=== PATIENT | male | born 1940 | race Caucasian/White ===

== ENCOUNTER 2016-07-18 19:28 | Emergency (ER) | payer MEDICARE, OTHER ==
[~2016-07-18] VITALS: Ht 177.8 cm; Wt 106.8 kg
[~2016-07-18 19:28] MED LIST: ALTACE 2.5MG T2.5 MG PO; ASPIRIN 32325 MG/TAB PO; AVELOX 400MG T400 MG PO; NO HOME MEDICATIONS; NORCO 325 MG-7.1 TAB PO; ZITHROMAX 250M250 MG PO
[2016-07-18 19:39] VITALS: TEMP 98.5
[2016-07-18] MEDS ORDERED: NORCO 325 MG-51 TAB PO (20:08)
[2016-07-18 20:13] VITALS: BP 155/83; PULSE 69
== END 2016-07-18 20:15 | disposition home or self-care (01) ==
LOC: COL.ER 19:28
DX: M25.511 Pain in right shoulder (principal); I10 Essential (primary) hypertension; Z87.891 Personal history of nicotine dependence; W22.8XXA Striking against or struck by other objects, initial encounter; Y92.009 Unspecified place in unspecified non-institutional (private) residence as the place of occurrence of the external cause

== ENCOUNTER 2016-10-11 01:07 | Emergency (ER) | payer MEDICARE, OTHER ==
[~2016-10-11] VITALS: Ht 180.3 cm; Wt 107.7 kg
[~2016-10-11 01:07] MED LIST changes: +NORCO 325 MG-51 TAB PO
[2016-10-11 01:09] VITALS: BP 133/61; TEMP 97.6
[2016-10-11] MEDS ORDERED: ULTRAM 50MG TAB50 MG PO (02:07)
[2016-10-11 02:21] VITALS: PULSE 63
== END 2016-10-11 02:24 | disposition home or self-care (01) ==
LOC: COL.ER 01:07
DX: M19.072 Primary osteoarthritis, left ankle and foot (principal); L84 Corns and callosities; I10 Essential (primary) hypertension

== ENCOUNTER 2017-04-19 08:12 | Emergency (ER) | payer MEDICARE, OTHER ==
[~2017-04-19] VITALS: Ht 180.3 cm; Wt 102.3 kg
[~2017-04-19 08:12] MED LIST changes: +ULTRAM 50MG TAB50 MG PO
[2017-04-19 08:25] VITALS: BP 148/73; PULSE 85; TEMP 97.8
[2017-04-19] MEDS ORDERED: ZITHROMAX Z PA250 MG PO (09:33)
== END 2017-04-19 09:42 | disposition home or self-care (01) ==
LOC: COL.ER 08:12
DX: H66.91 Otitis media, unspecified, right ear (principal); I10 Essential (primary) hypertension

== ENCOUNTER 2017-05-16 23:11 | Emergency (ER) | payer MEDICARE, OTHER ==
[2017-05-16 23:11] VITALS: TEMP 97.5
[~2017-05-16 23:11] MED LIST changes: +ZITHROMAX Z PA250 MG PO
[2017-05-16 23:38] LABS: BASO # 0.1 (0.0-0.2); BASO % 0.8 % (0.0-2.0); EOS # 0.1 (0.0-0.7); EOS % 1.7 % (0-4.0); GRAN # 4.3 (1.4-6.5); GRAN % 65.4 % (42.2-75.2); HEMATOCRIT 42.5 % (42.0-52.0); HEMOGLOBIN 13.4 g/dl (13.5-18.0); LYMPH # 1.6 (1.2-3.4); LYMPH % 24.4 % (20.0-51.0); MEAN CELL VOLUME 86 fl (80.0-100.0); MEAN CORPUSCULAR HEMOGLOBIN 27 pg (27.0-31.0); MEAN CORPUSCULAR HGB CONC 32 g/dl (33.0-37.0); MEAN PLATELET VOLUME 10.9 fl (7.4-10.4); MONO # 0.5 (0.1-0.6); MONO % 7.4 % (1.7-9.3); PLATELET COUNT 213 K/mm3 (130-400); RED BLOOD COUNT 4.95 M/mm3 (4.20-5.60); REDCELL DISTRIBUTION WIDTH-CV 14.5 % (11.5-14.5)
[2017-05-16 23:44] LABS: INR 1.1 (0.8-3.0); PROTHROMBIN TIME 12.7 SECONDS (9.7-12.8)
[2017-05-16 23:46] LABS: PARTIAL THROMBOPLASTIN TIME 33.7 SECONDS (26.0-37.0)
[2017-05-16 23:50] LABS: ALANINE AMINOTRANSFERASE 22 U/L (21-72); ALBUMIN 4.4 gm/dL (3.5-5.0); ALKALINE PHOSPHATASE 96 U/L (50-136); ANION GAP 8 mmol/L (7-16); AST,SGOT 26 U/L (15-37); BILIRUBIN,TOTAL 0.6 mg/dL (0.0-1.0); BLOOD UREA NITROGEN 18 mg/dL (9-20); CALCIUM 9.4 mg/dL (8.4-10.2); CARBON DIOXIDE 28 mmol/L (22-30); CHLORIDE 102 mmol/L (98-107); CREATININE, serum 1.18 mg/dL (0.66-1.25); GLUCOSE 88 mg/dL (74-106); POTASSIUM 4.3 mmol/L (3.4-5.0); SODIUM 138 mmol/L (137-145)
[2017-05-17 00:11] LABS: TROPONIN-I < 0.012 ng/mL (0.000-0.034)
[2017-05-17 01:48] VITALS: BP 151/81; PULSE 60
== END 2017-05-17 01:45 | disposition home or self-care (01) ==
LOC: COL.ER 23:11
PROVIDERS: Family Medicine
DX: R07.89 Other chest pain (principal); I10 Essential (primary) hypertension; Z98.890 Other specified postprocedural states

== ENCOUNTER 2018-01-19 18:57 | Emergency (ER) | payer MEDICARE, OTHER ==
[~2018-01-19] VITALS: Ht 180.3 cm; Wt 104.5 kg
[2018-01-19 19:01] VITALS: TEMP 97.3
[2018-01-19 21:17] VITALS: PULSE 72
[2018-01-19 21:43] VITALS: BP 198/98
== END 2018-01-19 21:44 | disposition home or self-care (01) ==
LOC: COL.ER 18:57
DX: S43.402A Unspecified sprain of left shoulder joint, initial encounter (principal); S50.02XA Contusion of left elbow, initial encounter; S50.12XA Contusion of left forearm, initial encounter; S40.012A Contusion of left shoulder, initial encounter; S20.212A Contusion of left front wall of thorax, initial encounter; W01.0XXA Fall on same level from slipping, tripping and stumbling without subsequent striking against object, initial encounter; Y92.009 Unspecified place in unspecified non-institutional (private) residence as the place of occurrence of the external cause

== ENCOUNTER 2018-04-24 19:00 | Emergency (ER) | payer MEDICARE, OTHER ==
[~2018-04-24] VITALS: Ht 180.3 cm; Wt 113.6 kg
[2018-04-24 19:11] VITALS: TEMP 98
[2018-04-24 19:54] LABS: COLLECTION METHOD CLEAN CATCH
[2018-04-24 19:58] VITALS: BP 195/91
[2018-04-24 20:02] LABS: MUCOUS Present /lpf; PH 6 (5-8); SQUAMOUS EPITHELIAL 0-2 /hpf; URINE APPEARANCE Clear; URINE BACTERIA None Seen /hpf; URINE BILIRUBIN Negative (NEGATIVE); URINE BLOOD Negative (NEGATIVE); URINE COLOR Yellow; URINE GLUCOSE Negative (NEGATIVE); URINE KETONE Negative (NEGATIVE); URINE LEUKOCYTE ESTERASE Negative (NEGATIVE); URINE NITRATE Negative (NEGATIVE); URINE PROTEIN(semi-quant) Negative (NEGATIVE); URINE RBC 0-2 /hpf
[2018-04-24] MEDS ORDERED: NORCO 325 MG-51 TAB PO (20:27)
[2018-04-24] MEDS ORDERED: NORVASC 5MG5 MG/TAB PO (20:27)
[2018-04-24 20:44] VITALS: PULSE 71
== END 2018-04-24 20:45 | disposition home or self-care (01) ==
LOC: COL.ER 19:00
PROVIDERS: Emergency Medicine
DX: M54.41 Lumbago with sciatica, right side (principal); I10 Essential (primary) hypertension; M54.10 Radiculopathy, site unspecified

== ENCOUNTER → 2018-06-14 | Outpatient (CLI) | payer MEDICARE, OTHER ==
[~2018-06-14] MED LIST changes: +NORVASC 5MG5 MG/TAB PO
== END ==
LOC: MHCPAIN 15:01
DX: G89.29 Other chronic pain (principal); M47.817 Spondylosis without myelopathy or radiculopathy, lumbosacral region; M54.16 Radiculopathy, lumbar region; M53.3 Sacrococcygeal disorders, not elsewhere classified; M48.061 Spinal stenosis, lumbar region without neurogenic claudication
CPT/HCPCS: G0463

== ENCOUNTER 2018-06-17 07:04 | Day surgery (SDC) | payer MEDICARE, OTHER ==
[2018-06-17] VITALS (7 sets, daily range): BP systolic 140–165; BP diastolic 60–74; PULSE 70–82; TEMP 97.1–97.2
[~2018-06-17] VITALS: Ht 177.8 cm; Wt 118.2 kg
[2018-06-17] MEDS ORDERED: MAXZIDE-25MG TA1 TAB PO (07:32)
[2018-06-17] MEDS ORDERED: ARAVA 20MG TABL20 MG PO (07:33)
[2018-06-17] MEDS ORDERED: FLEXERIL 1010 MG/TAB PO (07:34)
--- NOTE | 2018-06-17 08:26 | NUR ---
SPOUSE IN ROOM AND CALL LIGHT IN REACH. AWAITS SURGERY. COMFORTABLE ON CART.
--- NOTE | 2018-06-17 11:55 | NUR ---
Patient returns to room 3 per cart and is awake and alert. Bradford set covering incisions on abdomen x4 clean and dry. Room air sats 95% and temp 97.6. Taking ice chips. IV fluids infusing and site is free of redness. Siderails up x2 and call light in reach. Denies nausea and pain at the present time.
--- NOTE | 2018-06-17 12:10 | NUR ---
States that his pain is becoming more intense. Medicated with Morphine 4mg IV. Placed on oxygen at 2L per nasal cannula due to IV pain medication being given. Will continue to monitor.
--- NOTE | 2018-06-17 12:25 | NUR ---
More relaxed and states that the pain is subsiding. Taking occasional ice chip. Script for Lenore given to spouse to be taken to pharmacy to be filled prior to discharge. Kept on oxygen at 2L.
[2018-06-17] MEDS ORDERED: NORCO 325 MG-51 TAB PO (12:31)
--- NOTE | 2018-06-17 12:40 | NUR ---
Resting with eyes closed when not disturbed.
--- NOTE | 2018-06-17 12:55 | NUR ---
Remains on oxygen at 2L and is resting with eyes closed.
--- NOTE | 2018-06-17 13:25 | NUR ---
Continues to rest with eyes closed and offers no further complaints of pain.
--- NOTE | 2018-06-17 13:35 | NUR ---
Assisted up to the bathroom and ambulates across the hallway with steady gait. Voids and returns to room. Sitting up on the edge of the cart and eating applesauce.
--- NOTE | 2018-06-17 13:45 | NUR ---
Medicated with Motrin 400mg po for lower abdominal discomfort. Assisted with laying down.
--- NOTE | 2018-06-17 14:45 | NUR ---
Again assisted up to the bathroom and is able to void. Rates pain at 5/10 with movement. Continues to drink water and take ice chips.
--- NOTE | 2018-06-17 14:50 | NUR ---
Medicated with [place] 5mg one tab for incisional pain at 5/10. Allowed to rest.
--- NOTE | 2018-06-17 15:25 | NUR ---
INT discontinued and spouse in room assisting patient with dressing.
--- NOTE | 2018-06-17 15:35 | NUR ---
Given dismissal instructions and voices understanding of these. Provided office number for questions and concerns.
--- NOTE | 2018-06-17 15:37 | NUR ---
Patient dismissed to home per private vehicle driven by spouse with dismissal instructions in hand. Taken to the front door per wheelchair and assisted into vehicle with instructions in hand.
== END 2018-06-17 15:37 | disposition home or self-care (01) ==
LOC: SDCO 07:04
DX: K40.91 Unilateral inguinal hernia, without obstruction or gangrene, recurrent (principal); E66.9 Obesity, unspecified; Z68.36 Body mass index [BMI] 36.0-36.9, adult; Z79.899 Other long term (current) drug therapy; M10.9 Gout, unspecified; I10 Essential (primary) hypertension; N52.9 Male erectile dysfunction, unspecified; I00 Rheumatic fever without heart involvement
CPT/HCPCS: C1781; J0690; J1100; J2270; J2405; J2704; J3010; J7120

== ENCOUNTER 2018-06-30 08:34 | Outpatient (RCR) | payer MEDICARE, OTHER ==
[~2018-06-30 08:34] MED LIST changes: +ARAVA 20MG TABL20 MG PO; +FLEXERIL 1010 MG/TAB PO; +MAXZIDE-25MG TA1 TAB PO
== END 2018-07-14 09:56 | disposition home or self-care (01) ==
LOC: WSPT 08:34
DX: M47.817 Spondylosis without myelopathy or radiculopathy, lumbosacral region (principal); M48.061 Spinal stenosis, lumbar region without neurogenic claudication

== ENCOUNTER → 2018-07-14 | Outpatient (CLI) | payer MEDICARE, OTHER | LOC: MHCPAIN 09:23 | DX: M47.817 Spondylosis without myelopathy or radiculopathy, lumbosacral region (principal); M54.16 Radiculopathy, lumbar region | CPT/HCPCS: J1100; Q9967 ==

== ENCOUNTER → 2018-07-25 | Outpatient (CLI) | payer MEDICARE, OTHER | LOC: MHCPAIN 09:17 | DX: G89.29 Other chronic pain (principal); M47.817 Spondylosis without myelopathy or radiculopathy, lumbosacral region; M54.16 Radiculopathy, lumbar region; M53.3 Sacrococcygeal disorders, not elsewhere classified; M48.061 Spinal stenosis, lumbar region without neurogenic claudication | CPT/HCPCS: G0463 ==

== ENCOUNTER → 2018-10-06 | Outpatient (CLI) | payer MEDICARE, OTHER | LOC: MHCPAIN 08:47 | DX: M47.817 Spondylosis without myelopathy or radiculopathy, lumbosacral region (principal); M54.16 Radiculopathy, lumbar region | CPT/HCPCS: J1100; Q9967 ==

== ENCOUNTER → 2018-10-19 | Outpatient (CLI) | payer MEDICARE, OTHER | LOC: MHCPAIN 10:03 | DX: G89.29 Other chronic pain (principal); M47.817 Spondylosis without myelopathy or radiculopathy, lumbosacral region; M54.16 Radiculopathy, lumbar region; M53.3 Sacrococcygeal disorders, not elsewhere classified; M48.061 Spinal stenosis, lumbar region without neurogenic claudication | CPT/HCPCS: G0463 ==

== ENCOUNTER 2018-10-28 20:47 | Emergency (ER) | payer MEDICARE, OTHER ==
[~2018-10-28] VITALS: Ht 180.3 cm; Wt 112.3 kg
[2018-10-28 20:53] VITALS: BP 118/73; PULSE 82; TEMP 97.3
== END 2018-10-28 21:38 | disposition home or self-care (01) ==
LOC: COL.ER 20:47
DX: I80.9 Phlebitis and thrombophlebitis of unspecified site (principal); M06.9 Rheumatoid arthritis, unspecified; I10 Essential (primary) hypertension; E66.9 Obesity, unspecified; Z68.34 Body mass index [BMI] 34.0-34.9, adult

== ENCOUNTER 2018-11-17 09:15 | Outpatient (RCR) | payer MEDICARE, OTHER | END 2018-11-21 | LOC: WSPT | DX: M51.36 Other intervertebral disc degeneration, lumbar region (principal) ==

== ENCOUNTER 2018-12-01 09:15 | Outpatient (RCR) | payer MEDICARE, OTHER | END 2018-12-02 08:32 | disposition home or self-care (01) | LOC: WSPT 09:15 | DX: M51.36 Other intervertebral disc degeneration, lumbar region (principal) ==

== ENCOUNTER → 2018-12-06 | Outpatient (CLI) | payer MEDICARE, OTHER | LOC: MHCPAIN 10:12 | DX: G89.29 Other chronic pain (principal); M47.817 Spondylosis without myelopathy or radiculopathy, lumbosacral region; M54.16 Radiculopathy, lumbar region; M53.3 Sacrococcygeal disorders, not elsewhere classified; M48.061 Spinal stenosis, lumbar region without neurogenic claudication | CPT/HCPCS: G0463 ==

== ENCOUNTER → 2018-12-15 | Outpatient (CLI) | payer MEDICARE, OTHER | LOC: MHCPAIN 08:39 | DX: M47.817 Spondylosis without myelopathy or radiculopathy, lumbosacral region (principal); M54.16 Radiculopathy, lumbar region | CPT/HCPCS: J1100; Q9967 ==

== ENCOUNTER → 2018-12-28 | Outpatient (CLI) | payer MEDICARE, OTHER | LOC: MHCPAIN 09:18 | DX: G89.29 Other chronic pain (principal); M47.817 Spondylosis without myelopathy or radiculopathy, lumbosacral region; M54.16 Radiculopathy, lumbar region; M53.3 Sacrococcygeal disorders, not elsewhere classified | CPT/HCPCS: G0463 ==

== ENCOUNTER → 2019-08-08 | Outpatient (CLI) | payer MEDICARE, OTHER | LOC: COL.VAS 11:29 | DX: I10 Essential (primary) hypertension (principal); R60.0 Localized edema ==

== ENCOUNTER → 2019-08-30 | Outpatient (CLI) | payer MEDICARE, OTHER | LOC: MHCPAIN 09:12 | DX: M47.817 Spondylosis without myelopathy or radiculopathy, lumbosacral region (principal); M54.5 Low back pain; M53.3 Sacrococcygeal disorders, not elsewhere classified; G89.29 Other chronic pain; M54.16 Radiculopathy, lumbar region | CPT/HCPCS: G0463 ==

== ENCOUNTER 2019-09-05 19:24 | Emergency (ER) | payer MEDICARE, OTHER ==
[~2019-09-05] VITALS: Ht 177.8 cm; Wt 120.5 kg
[2019-09-05 19:40] VITALS: BP 134/79; TEMP 98.1
[2019-09-05 21:07] VITALS: PULSE 68
== END 2019-09-05 21:07 | disposition home or self-care (01) ==
LOC: COL.ER 19:24
DX: M25.562 Pain in left knee (principal); I10 Essential (primary) hypertension

== ENCOUNTER → 2019-09-14 | Outpatient (CLI) | payer MEDICARE, OTHER | LOC: MHCPAIN 09:28 | DX: M47.816 Spondylosis without myelopathy or radiculopathy, lumbar region (principal); M54.16 Radiculopathy, lumbar region; M54.5 Low back pain | CPT/HCPCS: J1100; Q9967 ==

== ENCOUNTER → 2019-09-27 | Outpatient (CLI) | payer MEDICARE, OTHER | LOC: MHCPAIN 09:33 | DX: M47.817 Spondylosis without myelopathy or radiculopathy, lumbosacral region (principal); M54.5 Low back pain; M48.061 Spinal stenosis, lumbar region without neurogenic claudication; G89.29 Other chronic pain; M54.16 Radiculopathy, lumbar region | CPT/HCPCS: G0463 ==

== ENCOUNTER → 2019-10-05 | Outpatient (CLI) | payer MEDICARE, OTHER | LOC: MHCPAIN 08:31 | DX: M47.817 Spondylosis without myelopathy or radiculopathy, lumbosacral region (principal); M54.5 Low back pain; M54.16 Radiculopathy, lumbar region | CPT/HCPCS: J1100; Q9967 ==

== ENCOUNTER → 2019-10-17 | Outpatient (CLI) | payer MEDICARE, OTHER | LOC: MHCPAIN 10:33 | DX: M47.817 Spondylosis without myelopathy or radiculopathy, lumbosacral region (principal); M54.5 Low back pain; M53.3 Sacrococcygeal disorders, not elsewhere classified; G89.29 Other chronic pain | CPT/HCPCS: G0463 ==

== ENCOUNTER → 2019-12-20 | Outpatient (CLI) | payer MEDICARE, OTHER | LOC: MHCPAIN 08:34 | DX: M47.817 Spondylosis without myelopathy or radiculopathy, lumbosacral region (principal); M54.5 Low back pain; M53.3 Sacrococcygeal disorders, not elsewhere classified; G89.29 Other chronic pain | CPT/HCPCS: G0463 ==

== ENCOUNTER 2020-03-26 17:57 | Emergency (ER) | payer MEDICARE, OTHER ==
[~2020-03-26] VITALS: Ht 177.8 cm; Wt 125.0 kg
[2020-03-26 18:08] VITALS: TEMP 97.3
[2020-03-26 19:04] LABS: BASO # 0.1 (0.0-0.2); BASO % 0.7 % (0.0-2.0); EOS # 0.3 (0.0-0.7); EOS % 3.6 % (0-4.0); GRAN % 69.6 % (42.2-75.2); HEMATOCRIT 42.3 % (42.0-52.0); HEMOGLOBIN 14.2 g/dl (13.5-18.0); LYMPH # 1.2 (1.2-3.4); LYMPH % 16.3 % (20.0-51.0); MEAN CELL VOLUME 89 fl (80.0-100.0); MEAN CORPUSCULAR HEMOGLOBIN 30 pg (27.0-31.0); MEAN CORPUSCULAR HGB CONC 34 g/dl (33.0-37.0); MEAN PLATELET VOLUME 10.2 fl (7.4-10.4); MONO # 0.7 (0.1-0.6); MONO % 9.7 % (1.7-9.3); PLATELET COUNT 166 K/mm3 (130-400); RED BLOOD COUNT 4.76 M/mm3 (4.20-5.60); REDCELL DISTRIBUTION WIDTH-CV 12.9 % (11.5-14.5)
[2020-03-26 19:12] LABS: ALANINE AMINOTRANSFERASE 22 U/L (4-49); ALBUMIN 4.4 gm/dL (3.5-5.0); ALKALINE PHOSPHATASE 77 U/L (50-136); ANION GAP 10 mmol/L (7-16); AST,SGOT 35 U/L (15-37); BILIRUBIN,TOTAL 0.7 mg/dL (0.0-1.0); BLOOD UREA NITROGEN 26 mg/dL (9-20); CARBON DIOXIDE 25 mmol/L (22-30); CHLORIDE 105 mmol/L (98-107); CREATININE, serum 1.37 (0.66-1.25); GLUCOSE 93 mg/dL (74-106); LIPASE 344 U/L (23-300); POTASSIUM 4.4 mmol/L (3.4-5.0); SODIUM 139 mmol/L (137-145); TOTAL PROTEIN 7.5 gm/dL (6.4-8.2)
[2020-03-26 19:14] LABS: INR 1.1 (0.8-3.0); PROTHROMBIN TIME 12.2 SECONDS (9.7-12.8)
[2020-03-26 19:24] LABS: TROPONIN-I < 0.012 ng/mL (0.000-0.035)
[2020-03-26 22:05] VITALS: BP 126/75; PULSE 70
== END 2020-03-26 22:15 | disposition home or self-care (01) ==
LOC: COL.ER 17:57
PROVIDERS: Nurse Practitioner
DX: I10 Essential (primary) hypertension (principal); Z88.1 Allergy status to other antibiotic agents; Z88.0 Allergy status to penicillin
CPT/HCPCS: J7030

== ENCOUNTER 2020-06-04 10:00 | Inpatient (IN) | payer MEDICARE, OTHER ==
[~2020-06-04] VITALS: Ht 180.3 cm; Wt 126.2 kg
[2020-06-04 10:21] LABS: BASO % 0.6 % (0.0-2.0); EOS # 0.1 (0.0-0.7); EOS % 1.6 % (0-4.0); GRAN # 5.1 (1.4-6.5); GRAN % 72.5 % (42.2-75.2); HEMATOCRIT 43.1 % (42.0-52.0); HEMOGLOBIN 14.2 g/dl (13.5-18.0); LYMPH # 1.2 (1.2-3.4); MEAN CELL VOLUME 91 fl (80.0-100.0); MEAN CORPUSCULAR HEMOGLOBIN 30 pg (27.0-31.0); MEAN CORPUSCULAR HGB CONC 33 g/dl (33.0-37.0); MEAN PLATELET VOLUME 10.6 fl (7.4-10.4); MONO # 0.5 (0.1-0.6); MONO % 7.7 % (1.7-9.3); PLATELET COUNT 167 K/mm3 (130-400); RED BLOOD COUNT 4.76 M/mm3 (4.20-5.60)
[2020-06-04 10:31] LABS: ALBUMIN 4.4 gm/dL (3.5-5.0); BILIRUBIN,TOTAL 0.7 mg/dL (0.0-1.0); CREATININE, serum 1.37 (0.66-1.25); POTASSIUM 4.1 mmol/L (3.4-5.0); TOTAL PROTEIN 7.3 gm/dL (6.4-8.2)
[2020-06-04 10:45] LABS: TROPONIN-I 0.054 ng/mL (0.000-0.035)
[2020-06-04] MEDS ORDERED: ASPIRIN 81M81 MG/TA2 PO (13:49)
[2020-06-04 14:52] VITALS: BP 159/68; PULSE 63; TEMP 97.5
[2020-06-04 16:42] VITALS: BP 159/68; PULSE 63; TEMP 97.5
--- NOTE | 2020-06-04 18:20 | NUR ---
Pt has had no chest pain or palpitations after arriving to the floor. States he had dizziness this am, but not since. IVF infusing into LAC. POC discussed with patient, NPO at midnight. Call light within reach.
[2020-06-04 19:23] VITALS: BP 152/61; PULSE 59; TEMP 98.2
--- NOTE | 2020-06-04 20:00 | NUR ---
Assessment complete. Patient is awake sititng in the recliner with no complaints of chest pain or other pain. He is alert and oriented with a steady gait. He breathes well on RA. Dependent edema that is non-pitting is present in bilat lower extremities. Lungs are clear with fine crackles in the bases. Patient has been educated on NPO status at midnight for heart cath in the am. Call light in reach, will continue to monitor.
--- NOTE | 2020-06-04 20:00 | NUR ---
Dr Ortiz contacted regarding Plavix order. Carl orders to hold Plavix prior to heart cath, as patient takes this medication at home. Unable to chart this in the EMAR, as order is still pending per pharmacy. Plavix was no administered.
[2020-06-05] VITALS (17 sets, daily range): BP systolic 116–180; BP diastolic 46–87; PULSE 54–70; TEMP 97.4–97.9
--- NOTE | 2020-06-05 07:00 | NUR ---
Report received from LEXY Funk. pT up ad jack to bathroom trying to verify plan for today.
[2020-06-05 07:08] LABS: HEMATOCRIT 38.8 % (42.0-52.0); HEMOGLOBIN 12.6 g/dl (13.5-18.0); MEAN CELL VOLUME 91 fl (80.0-100.0); MEAN CORPUSCULAR HEMOGLOBIN 30 pg (27.0-31.0); MEAN CORPUSCULAR HGB CONC 33 g/dl (33.0-37.0); MEAN PLATELET VOLUME 11.7 fl (7.4-10.4); PLATELET COUNT 161 K/mm3 (130-400); RED BLOOD COUNT 4.26 M/mm3 (4.20-5.60); REDCELL DISTRIBUTION WIDTH-CV 13.1 % (11.5-14.5)
[2020-06-05 07:13] LABS: INR 1.1 (0.8-3.0); PROTHROMBIN TIME 12.3 SECONDS (9.7-12.8)
[2020-06-05 07:15] LABS: PARTIAL THROMBOPLASTIN TIME 31.4 SECONDS (26.0-37.0)
[2020-06-05 07:21] LABS: CALCIUM 8.5 mg/dL (8.4-10.2); CREATININE, serum 1.25 (0.66-1.25); POTASSIUM 3.9 mmol/L (3.4-5.0)
--- NOTE | 2020-06-05 09:38 | NUR ---
Assessment charted. Pt resting in recliner at side of bed. Denies any pain, IVF to LFA. Discussed plan of care for today and heart catheterization. Will continue to monitor.
--- NOTE | 2020-06-05 12:45 | NUR ---
[employer] met with patient to discuss discharge planning. Patient lives in [place] with his , Leila (ph#[phone]) and sees Dr. Casey for primary care. Patient obtains medications from [facility] in [place] and states it is a struggle for him to afford his medications. Patient states he didn't pay his Medicare Pt D plan, so he lost it. Patient cannot reapply until open enrollment in December. 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 Patient sometimes uses a cane but reports no other DME. Patient states he is independent with ADLS but has his help him with socks due to issues with his back. Patient does not have Advance Directives and is not interested in DPOA-HC form at this time. Patient plans to return home upon discharge. SW contacted patient's , Leila who denies any questions or concerns at this time.
--- NOTE | 2020-06-05 12:53 | NUR ---
First visit from the inspector plumbing. No needs right now.
--- NOTE | 2020-06-05 18:18 | NUR ---
Pt doing well, was hoping to be able to d/c tonight but called Kassandra and he wants to see am labs prior to dishcarge, relayed to pt. Pt resting in bed, IVF infusing. Denies needs, taking PO well. Will give bedside shift report to gilmer dunbar who will resume care.
[2020-06-06 00:09] VITALS: BP 176/66; PULSE 64; TEMP 97.5
--- NOTE | 2020-06-06 00:11 | NUR ---
KARMA Car APRN NOTIFIED OF PATIENTS BLOOD PRESSURE. SEE NEW ORDERS
[2020-06-06 01:18] VITALS: BP 134/57; PULSE 69
[2020-06-06 04:50] VITALS: BP 150/63; PULSE 59; TEMP 97.7
[2020-06-06 04:52] VITALS: BP 150/63; PULSE 59; TEMP 97.7
[2020-06-06 06:29] LABS: BASO % 0.5 % (0.0-2.0); EOS # 0.2 (0.0-0.7); EOS % 3.4 % (0-4.0); GRAN # 4.1 (1.4-6.5); GRAN % 67.7 % (42.2-75.2); HEMATOCRIT 36.8 % (42.0-52.0); LYMPH # 1.2 (1.2-3.4); LYMPH % 19.9 % (20.0-51.0); MEAN CELL VOLUME 90 fl (80.0-100.0); MEAN CORPUSCULAR HEMOGLOBIN 29 pg (27.0-31.0); MEAN CORPUSCULAR HGB CONC 33 g/dl (33.0-37.0); MEAN PLATELET VOLUME 10.8 fl (7.4-10.4); MONO # 0.5 (0.1-0.6); MONO % 8.3 % (1.7-9.3); PLATELET COUNT 152 K/mm3 (130-400); RED BLOOD COUNT 4.08 M/mm3 (4.20-5.60); REDCELL DISTRIBUTION WIDTH-CV 13.2 % (11.5-14.5)
[2020-06-06 06:42] LABS: CALCIUM 8.3 mg/dL (8.4-10.2); CREATININE, serum 1.33 (0.66-1.25); POTASSIUM 3.9 mmol/L (3.4-5.0)
[2020-06-06 07:24] VITALS: BP 115/50; PULSE 49; TEMP 97.4
[2020-06-06] MEDS ORDERED: LIPITOR 80MG80 MG PO (08:55)
[2020-06-06] MEDS ORDERED: PLAVIX 75MG TAB75 MG PO (08:55)
[2020-06-06] MEDS ORDERED: IMDUR 30MG30 MG/TAB PO (08:56)
[2020-06-06] MEDS ORDERED: NORVASC 10MG10 MG PO (08:58)
[2020-06-06] MEDS ORDERED: ASPIRIN E.C. 8181 MG PO (08:59)
[2020-06-06] MEDS ORDERED: PRINIVIL2.5 MG PO (08:59)
[2020-06-06 09:00] VITALS: BP 115/50; PULSE 49; TEMP 97.4
--- NOTE | 2020-06-06 09:00 | NUR ---
Shift assessment complete. A&Ox4. Heart RRR. Lungs CTA. Denies chest pain, dizziness, SOA. 1/2 NS running to left AC IV. VSS. Denies needs at this time. Call light in reach.
--- NOTE | 2020-06-06 10:27 | NUR ---
Discharge teaching discussed w/pt and all questions answered. IV to left AC removed w/o s/s complication. Pt in room awaiting ride at this time.
--- NOTE | 2020-06-06 10:36 | NUR ---
Pt escorted out at this time to pt entrance.
== END 2020-06-06 10:36 | disposition home or self-care (01) | DRG 282 ==
LOC: COL.ER 10:00 → MEDICAL 12:43
PROVIDERS: Physician Assistant; Student in an Organized Health Care Education/Training Program; ADMIT Internal Medicine
PROC: 4A023N7 Measurement of Cardiac Sampling and Pressure, Left Heart, Percutaneous Approach (ICD-10-PCS; principal; 2020-06-05)
PROC: B2111ZZ Fluoroscopy of Multiple Coronary Arteries using Low Osmolar Contrast (ICD-10-PCS; 2020-06-05)
DX: I21.4 Non-ST elevation (NSTEMI) myocardial infarction (principal); E66.9 Obesity, unspecified; I12.9 Hypertensive chronic kidney disease with stage 1 through stage 4 chronic kidney disease, or unspecified chronic kidney disease; I25.10 Atherosclerotic heart disease of native coronary artery without angina pectoris; N18.30 Chronic kidney disease, stage 3 unspecified; Z88.0 Allergy status to penicillin; Z88.1 Allergy status to other antibiotic agents; Z91.040 Latex allergy status; Z88.8 Allergy status to other drugs, medicaments and biological substances; Z79.82 Long term (current) use of aspirin; Z68.37 Body mass index [BMI] 37.0-37.9, adult
CPT/HCPCS: 99223-AI; 99232-AI; 99239; C1769; J0360; J1644; J1650; J2250; J3010; J7030

== ENCOUNTER 2020-07-15 16:34 | Outpatient (RCR) | payer MEDICARE, OTHER ==
[~2020-07-15 16:34] MED LIST changes: +ASPIRIN 81M81 MG/TA2 PO; +ASPIRIN E.C. 8181 MG PO; +IMDUR 30MG30 MG/TAB PO; +LIPITOR 80MG80 MG PO; +NORVASC 10MG10 MG PO; +PLAVIX 75MG TAB75 MG PO; +PRINIVIL2.5 MG PO
== END 2020-10-10 | disposition home or self-care (01) ==
LOC: COL.CR
DX: I21.4 Non-ST elevation (NSTEMI) myocardial infarction (principal)